=== PATIENT | male | born 1950 ===

== ENCOUNTER 2022-06-13 08:07 | Inpatient (IN) ==
--- NOTE | 2022-06-11 11:02 | Anesthesiology Consultation ---
Date of Service June 11, 2022 Assessment & Plan (1) Encounter for pre-operative examination: Chart Review Chart Review: Acceptable Risk for Surgery (pending DOS labs ) and Patient NOT seen in Pre Admission Testing -No preop testing done- will order CBC with diff and PRP for stat AM of surgery - Check BSG AM DOS -COVID screening: Per PAT nursing assessment on 06/09/22. No known COVID-19 posi tive contacts or current COVID-19 related symptoms. Travel screen negative. Patient vaccinated for Covid. At surgeon discretion if preop Covid testing being done. Pt seen by cardio 10/31/21= Seen for follow up on CAD. Stable from cardiac standpoint. Presents today for cardiac evaluation for lumbar surgeryinitially scheduled 11/11/2021 but canceled due to insurance reasons. Will be rescheduled hopefully in the future. EKG done in office. Patient has not had any active cardiovascular conditions in the last 30 days. Echocardiogram from October 2021 reviewed. Patient denies angina. No evidence of volume overload or heart failure. BP controlled. "He is currently stable from a cardiac standpoint and is an acceptable cardiac risk to proceed with planned surgery without additional testing or intervention. Continue cardiac medications throughout the perioperative period especially beta-antwon and statin." We will leave aspirin to surgeon discretiondoes not routinely need to be discontinued for elective noncardiac surgeries. Follow-up in 1 year. History Surgery Operation Date: 06/13/22 12:15 Proposed Procedures p L3-L4 and L5-S1 Decompression and Fusion, L4-L5 Hardware Removal Spinal Cord Monitoring - Rinku Martinez, Height/Weight Height: 5 ft 8.5 in Weight: 80.286 kg Allergies Allergy/AdvReac Type Severity Reaction Status Date / Time Gadolinium-Containing Allergy Severe Throat Verified 06/09/22 12:27 Contrast Medi swelling Medications Home Medications Medication Instructions Recorded Confirmed Last Taken aspirin 81 mg tablet,delayed 81 mg PO QAM 04/17/21 06/09/22 Unknown release (Adult Low Dose Aspirin) atorvastatin 40 mg tablet 40 mg PO QPM 04/17/21 06/09/22 Unknown dulaglutide 0.75 mg/0.5 mL 0.75 mg subcut WK 04/17/21 06/09/22 Unknown subcutaneous pen injector (Trulicity) empagliflozin 25 mg tablet 25 mg PO QAM 04/17/21 06/09/22 Unknown (Jardiance) glimepiride 2 mg tablet 2 mg PO BID 04/17/21 06/09/22 Unknown metformin 500 mg tablet 500 mg PO TID 04/17/21 06/09/22 Unknown metoprolol tartrate 50 mg tablet 50 mg PO QAM 04/17/21 06/09/22 Unknown multivitamin 1 tab PO QAM 04/17/21 06/09/22 Unknown omega-3 fatty acids 1,000 mg 1,000 mg PO BID 04/17/21 06/09/22 Unknown capsule (Fish Oil Concentrate) ramipril 10 mg tablet 10 mg PO QAM 04/17/21 06/09/22 Unknown Past Medical History Medical History (Updated 06/11/22 @ 11:01 by Syl Huitron PA-C) Cataract Coronary artery disease S/p LAD stent x 1 in 2000 Diabetes type 2, controlled NIDDM History of kidney stones Hyperlipidemia Hypertension Lumbar spondylosis Myocardial infarction Anterior STEMI 04/22/01- s/p LAD stent x1 Follows with Dr. Hook ([place]) Neurogenic claudication due to lumbar spinal stenosis Past Family History Family History Other No family history of adverse response to anesthesia Past Surgical History Surgical History H/O laminectomy x2 History of cardiac cath x3 total (2000 - stent x1, most recent 2006- no stents) History of cholecystectomy History of colonoscopy History of cystoscopy History of foot surgery left foot neuroma removal History of lumbar spinal fusion 2013 History of tonsillectomy History of wisdom tooth extraction Social History Smoking Status: Current every day smoker tobacco type: cigarettes Smoking cigarettes per day: 20 cigs/day (tobacco use x 50 years) Do You Dip or Chew Tobacco: No Hx Alcohol Use: Yes (mixed drink on cruises) Alcohol type: hard liquor alcohol intake frequency: holidays/special occasions only Hx Substance Use: No substance use type: does not use Testing Electrocardiogram Date: 10/31/21 SR at 87bpm Low voltage Chest X-Ray Date: 10/14/21 Findings: + NAD FINDINGS: PA and lateral chest radiographs are compared to study dated 03/07/2014. The cardiomediastinal silhouette is unremarkable. Chronic interstitial thickening is similar to previous. No airspace consolidation or pleural effusion is identified. Emphysematous changes suspected. There is no pneumothorax. The skeletal structures are osteopenic. The bony thorax appears intact. Cholecystectomy clips are noted in the right upper quadrant. Echocardiogram Date: 10/09/21 LVEF 50-55%. Basal inferior wall and inferior septum hypokinesis. Suggestive of impaired LV relaxation. RVSP less than 25 mmHg. No significant valvular disease.
[~2022-06-13 08:07] MED LIST: ACETAMINOPHEN 500 MG TAB PO SCH; CeleBREX 200 MG CAP PO SCH; GABAPENTIN 300 MG CAP PO SCH; LR 15ML/HR IV SCH; SUGAMMADEX SODIUM 200 MG/2 ML VIAL IV ONE; ceFAZolin 2000MG 2,000 MG/15 ML SYR IV SCH
[2022-06-13] MEDS ORDERED: PROPOFOL IV EMULSION 10 MG/ML 20 ML VIAL IV ONE (08:42)
[2022-06-13] MEDS ORDERED: DEXAMETHASONE SOD INJ 4 MG/ML VIAL ONE ×6 (08:42→11:11)
[2022-06-13] MEDS ORDERED: ROCURONIUM BROMIDE 10 MG/ML 5 ML VIAL IV ONE (08:42)
[2022-06-13] MEDS ORDERED: ONDANSETRON INJ 2 MG/ML 2 ML VIAL ONE ×2 (08:42→13:28)
[2022-06-13] MEDS ORDERED: fentaNYL citrate 100 MCG/2 ML VIAL ONE (08:42)
[2022-06-13] MEDS ORDERED: GLYCOPYRROLATE 0.2 MG/ML VIAL ONE (08:42)
[2022-06-13 08:47] LABS: Basophils # (auto) 0.06 K/uL (0-0.2); Basophils % (auto) 0.5 %; Eosinophils # (auto) 0.64 K/uL (0-0.50); Eosinophils % (auto) 5.7 %; Hemoglobin 16.8 g/dl (14.0-18.0); Immature Granulocytes # (auto) 0.02 K/uL (0.00-0.02); Immature Granulocytes % (auto) 0.2 %; Lymphocytes # (auto) 2.39 K/uL (1.2-3.4); Lymphocytes % (auto) 21.3 %; Mean Corpuscular Hemoglobin 32.8 pg (25.0-34.0); Mean Corpuscular Hgb Conc 35.7 g/dL (32.0-36.0); Mean Corpuscular Volume 91.8 fL (80.0-100.0); Mean Platelet Volume 9.9 fL (9.4-12.4); Monocytes # (auto) 0.59 K/uL (0.24-0.82); Monocytes % (auto) 5.3 %; Neutrophils # (auto) 7.52 K/uL (1.4-6.5); Platelet Count 210 K/uL (130-400); RDW Coefficient of Variation 12.2 % (11.5-14.5); RDW Standard Deviation 40.8 fL (36.4-46.3); Red Blood Count 5.12 M/uL (4.63-6.08); White Blood Count 11.22 K/ul (4.8-10.8)
[2022-06-13 08:59] LABS: Partial Thromboplastin Time 26.3 Seconds (21.0-31.0); Prothrombin Time 10.6 Seconds (9.0-12.0)
[2022-06-13 09:06] LABS: BUN Creatinine Ratio 19.2 (10-20); Calcium 9.6 mg/dl (8.5-10.1); Creatinine Clr Calc Pharmacy 68.3 ml/min; Est GFR (African American) 89.1 ml/min; Est GFR (Non-African American) 76.8 ml/min; Potassium 4.2 mmol/L (3.5-5.1)
[2022-06-13] MEDS ORDERED: ePHEDrine sulfate 50 MG/ML AMP IV PRN ×2 (09:19→14:40)
[2022-06-13] MEDS ORDERED: ATROPINE SULFATE 0.1 MG/ML 10ML SYR IV PRN ×2 (09:19→14:40)
--- NOTE | 2022-06-13 10:03 | History & Physical Bridge Note ---
Date of Service June 13, 2022 History & Physical Bridge Note I have examined the patient, reviewed the History & Physical and in the interval since the performance of the History & Physical I have noted the following changes of clinical significance: no changes noted
--- NOTE | 2022-06-13 10:04 | History & Physical Report ---
Date of Service June 13, 2022 Assessment & Plan (1) Neurogenic claudication due to lumbar spinal stenosis: Plan: L3-L4 and L5-S1 decompression and fusion, L4-L5 hardware removal History of Present Illness Chief Complaint: Back and leg pain Primary Care Provider: NO PCP This is a 71-year-old male who presents with chronic persistent back and leg pain. Failed extensive course of nonoperative care is here for surgical intervention. Allergies Allergy/AdvReac Type Severity Reaction Status Date / Time Gadolinium-Containing Allergy Severe Throat Verified 06/13/22 08:36 Contrast Medi swelling Home Medications Medication Instructions Recorded Confirmed Type aspirin 81 mg tablet,delayed 81 mg PO QAM 04/17/21 06/13/22 History release (Adult Low Dose Aspirin) atorvastatin 40 mg tablet 40 mg PO QPM 04/17/21 06/13/22 History dulaglutide 0.75 mg/0.5 mL 0.75 mg subcut WK 04/17/21 06/13/22 History subcutaneous pen injector (Trulicity) empagliflozin 25 mg tablet 25 mg PO QAM 04/17/21 06/13/22 History (Jardiance) glimepiride 2 mg tablet 2 mg PO BID 04/17/21 06/13/22 History metformin 500 mg tablet 500 mg PO BID 04/17/21 06/13/22 History metoprolol tartrate 50 mg tablet 50 mg PO QAM 04/17/21 06/13/22 History multivitamin 1 tab PO QAM 04/17/21 06/13/22 History omega-3 fatty acids 1,000 mg 1,000 mg PO BID 04/17/21 06/13/22 History capsule (Fish Oil Concentrate) ramipril 10 mg tablet 10 mg PO QAM 04/17/21 06/13/22 History docusate sodium 100 mg capsule 100 mg PO DAILY 06/13/22 06/13/22 History (Colace) Past Med/Surg History Medical History Cataract Coronary artery disease S/p LAD stent x 1 in 2000 Diabetes type 2, controlled NIDDM History of kidney stones Hyperlipidemia Hypertension Lumbar spondylosis Myocardial infarction Anterior STEMI 04/22/01- s/p LAD stent x1 Follows with Dr. Hook ([place]) Neurogenic claudication due to lumbar spinal stenosis Surgical History H/O laminectomy x2 History of cardiac cath x3 total (2000 - stent x1, most recent 2006- no stents) History of cholecystectomy History of colonoscopy History of cystoscopy History of foot surgery left foot neuroma removal History of lumbar spinal fusion 2014 History of tonsillectomy History of wisdom tooth extraction Family History Other No family history of adverse response to anesthesia Social History Smoking Status: Current every day smoker Cigarettes Per Day: 20 cigs/day (tobacco use x 50 years); Second Hand Exposure: No; Do You Dip or Chew Tobacco: No; Tobacco Cessation Education Requested by Patient: No Hx Alcohol Use: Yes (mixed drink on cruises) Alcohol type: hard liquor Hx Substance Use: No Preferred Language: Portuguese Communication Ability: Effective Customs Entry Writer Required: No Beliefs That Will Affect Care: None marital status: Current Living Situation: Spouse current occupational status: retired Feels Safe at Home: Yes Safety Concerns: Feels Safe At This Time Assistive Devices: Glasses Assistive Devices Comment: reading glasses Physical Exam Physical Exam: Patient is alert and oriented Heart regular rhythm Lungs clear Results & Data Results & Data ([facility]) Vital Signs (Past 12 Hours) Vital Signs Temp Pulse Resp BP Pulse Ox O2 Del Method 06/13/22 08:41 36.6 C 85 18 130/81 94 Room Air
[2022-06-13] MEDS ORDERED: ceFAZolin 330 MG/ML 1 GM VIAL ONE (10:10)
[2022-06-13] MEDS ORDERED: BUPIVACAINE/EPINEPHRINE 0.25% 1:200,000 30 ML VIAL ONE (10:10)
[2022-06-13] MEDS ORDERED: FLOSEAL HEMOSTATIC MATRIX 10ML TOP ONE (10:54)
--- NOTE | 2022-06-13 13:03 | Fluoroscopy Report ---
INTRAOPERATIVE RADIOGRAPHS CLINICAL HISTORY: Lumbar spinal fusion. Fluoroscopy time: 27 seconds. FINDINGS: 2 spot fluoroscopic views of the lumbar spine are presented. There has been discectomy at L 3-L4 laminectomy and posterior fusion at L3-S1. Interpedicular screws are present at all levels. The orthopedic hardware appears intact. IMPRESSION: Intraoperative images from lumbar spinal fusion surgery as above. Electronically signed by: Ruben Brewer M.D. 06/13/2022 1:02 PM
--- NOTE | 2022-06-13 13:08 | Operative Report ---
Post Operative Report Pre & Post Diagnosis Operation Date: 06/13/22 09:55 Pre-Op Diagnosis: Spinal Stenosis, Lumbar Region with Neurogenic Post-Op Diagnosis: Spinal Stenosis, Lumbar Region with Neurogenic I identified the patient and participated in the time-out.: Yes Procedure Operation Date: 06/13/22 09:55 Actual Procedures #1 removal of posterior instrumentation L4-5. #2 exploration of fusion L4-5 #3 revision decompression with bilateral medial facetectomies and foraminotomies L3-L4 L5-S1. #4 posterior spinal fusion L3-S1. #5 placement posterior segmental instrumentation L3-S1. #6 interbody fusion L3-L4. #7 placement of Spira 13 x 26 mm at L3-L4. #8 placement locally harvested morselized autograft in the posterior gutters. #9 placement of I factor model V toss interbody space and posterior lateral gutters. Surgeon Rinku Martinez, Teenage Babysitter None Estimated Blood Loss 270 Findings Consistent with Post-Op Diagnosis Specimens None Indications This is a 71-year-old male who presents above-mentioned diagnosis after failed course of nonoperative care is here for surgical invention. Description of Procedure Patient was met with identified informed consent obtained. Patient was then taken to the operative suite underwent a patient placed in a prone position Deny table top Ezekiel frame. All bony prominences well-padded eyes inspected to ensure no external pressure placed upon them. This point the lumbar spine was prepped and draped in a sterile fashion. Sharp dissection with the assistance of Bovie cautery was then performed down to and exposing the remaining lamina and transverse processes of L3 L4-5 and the sacral ala bilaterally. Then proceeded to remove the hardware at L4-5 bilaterally explore the fusion mass noting it to be mature and intact. Informed revision complete laminectomy of L5 and L3 including medial facetectomies and foraminotomies. Pedicle screws then placed in L3-L4-L5 and S1 levels bilaterally with assistance of fluoroscopy and properly sized donn placed. By way the transforaminal approach on the right complete discectomy of L3-L4 was performed endplates curetted to subcortical bleeding bone and a 13 x 26 mm spiral cage with I factor tapped in position. The rods were then locked in 5 position bilaterally. The transverse processes of L3 L4-5 and sacral ala burred to subcortical bleeding bone. I factor model V toss and locally harvested morselized autograft was placed in the posterior gutters. 15 round WENDI drain inserted. Incision was then closed with 1 Vicryl the fascia 2-0 Vicryl subcutaneously and 4 Monocryl for final skin closure. Steri-Strip sterile dressings placed. Patient waken taken to PACU in stable condition. Please note spinal cord monitoring was utilized at the procedure no changes noted. I attest to the content of the Intraoperative Record and any orders documented therein. Any exceptions are noted below.
[2022-06-13] MEDS: fentaNYL citrate 100 MCG/2 ML VIAL IV PRN ×4 (13:20→13:35)
[2022-06-13] MEDS: HYDROmorphone INJ 2 MG/ML SYR/VIAL IV PRN ×3 (13:40→13:55)
--- NOTE | 2022-06-13 14:02 | Anesthesiology Progress Note ---
Date of Service June 13, 2022 Anesthesia Post Procedure Vital Signs Vital Signs: Temp Pulse Resp BP Pulse Ox O2 Del Method 06/13/22 08:41 36.6 C 85 18 130/81 94 Room Air Pain Intensity Lower Back: Pain Intensity: 2 Transfer of Care Handoff Completed per policy Notes Mental Status: alert / awake / arousable and participated in evaluation Patient Amnestic to Procedure: Yes Nausea / Vomiting: adequately controlled Pain: adequately controlled Airway Patency, RR, SpO2: stable & adequate BP & HR: stable & adequate Hydration State: stable & adequate Anesthetic Complications: no major complications apparent and Pt Satisfied with anesthetic care
[2022-06-13] MEDS ORDERED: HYDROmorphone INJ 2 MG/ML SYR/VIAL IV PRN (14:40)
[2022-06-13] MEDS ORDERED: SOD PHOSPHATE/SOD BIPHOSPHATE ENEMA 132 ML BTL PR PRN (14:55)
[2022-06-13] MEDS ORDERED: FAMOTIDINE 20 MG TAB PO PRN (14:55)
[2022-06-13] MEDS ORDERED: ACETAMINOPHEN 500 MG TAB PO PRN (14:55)
[2022-06-13] MEDS ORDERED: METOCLOPRAMIDE HCL INJ 5 MG/ML 2 ML VIAL IV PRN (14:55)
[2022-06-13] MEDS ORDERED: diphenhydrAMINE Capsule 25 MG CAP PO PRN (14:55)
[2022-06-13] MEDS ORDERED: PROMETHAZINE HCL 12.5 MG in SODIUM CHLORIDE 0.9% 50 ML IV PRN (14:55)
[2022-06-13] MEDS ORDERED: ALUMINUM/MAGNESIUM SUSP 30 ML UDC PO PRN (14:55)
[2022-06-13] MEDS ORDERED: HYDROmorphone INJ 0.5 MG/0.5 ML SYR IV PRN (14:55)
[2022-06-13] MEDS ORDERED: ONDANSETRON 4 MG OD TAB PO PRN (14:55)
[2022-06-13] MEDS ORDERED: LORazepam 0.5 MG in SYRINGE 0 ML IV PRN (14:55)
[2022-06-13] MEDS ORDERED: bisacodyL 10 MG SUPP PR PRN (14:55)
[2022-06-13] MEDS ORDERED: PHARMACY GLYCEMIC MGMT CONSULT PRN (14:55)
[2022-06-13] MEDS ORDERED: DO NOT ADMINISTER FLU VACCINE PRN (14:55)
[2022-06-13] MEDS ORDERED: traMADol HCL 50 MG TABLET PO PRN (14:55)
[2022-06-13] MEDS ORDERED: hydrOXYzine HCl 25 MG TAB PO PRN (14:55)
[2022-06-13] MEDS ORDERED: NALOXONE HCL 0.4 MG/1 ML VIAL/CARP IV PRN (14:55)
[2022-06-13] MEDS ORDERED: MAGNESIUM HYDROXIDE SUSP 30 ML UDC PO PRN (14:55)
[2022-06-13] MEDS ORDERED: LORazepam 0.5 MG TAB PO PRN (14:55)
[2022-06-13] MEDS ORDERED: ONDANSETRON INJ 2 MG/ML 2 ML VIAL IV PRN (14:55)
[2022-06-13] MEDS ORDERED: HYDROmorphone INJ 1 MG/ML SYRINGE IV PRN (14:55)
[2022-06-13] MEDS ORDERED: ACETAMINOPHEN 1,000 MG/100 ML VIAL IV PRN (14:55)
[2022-06-13] MEDS ORDERED: DO NOT ADMINISTER PNEUMOCOCCAL VACCINE PRN (14:55)
--- NOTE | 2022-06-13 15:25 | Pharmacy Report ---
Pharmacy Glycemic Short Note 2 - Date of Service June 13, 2022 - Glycemic Short BSG Results (Last 24 hours): 06/13/22 06/13/22 06/13/22 08:30 08:33 13:19 Glucose 163 H POC Glucose 174 H 171 H OUTPATIENT ANTIDIABETIC REGIMEN: * Trulicity 0.75 mg SC weekly (Sundays) * Jardiance 25 mg PO daily * Glimepiride 2 mg PO BIDM HbA1c ordered ASSESSMENT: * EG is a 71 year old male POD #0 s/p spinal decompression/fusion * Received dexamethasone IV in OR with 6 mg IV daily ongoing starting tomorrow morning * Preop BSG of 174 mg/dL and postop BSG of 171 mg/dL * Will initiate aggressive Novolog and weight-based steroid basal dosing initially PLAN FOR INPATIENT GLYCEMIC CONTROL: * Hold outpatient oral diabetes medications * Basal insulin * Lantus 30 units SQ x 1 (~0.4 unit/kg) * Reassess in AM * Bolus insulin * NovoLog per scale ACHS or Q6hrs while NPO * Goal Range: Low 110 mg/dL - High 140 mg/dL * Correction Factor: 20 mg/dL/unit * Nutritional / Prandial insulin per carb ratio of 1 unit per 7 grams CHO consumed
[2022-06-13] MEDS ORDERED: LANTUS PER UNIT CHARGE SQ ONE (15:30)
[2022-06-13] MEDS: SODIUM CHLORIDE 0.9% 1000ML 1,000 ML IV SCH (15:54)
[2022-06-13] MEDS ORDERED: GLUCOSE 40% GEL 15 GM TUBE PO PRN (16:45)
[2022-06-13] MEDS ORDERED: CARBOHYDRATES FOR HYPOGLYCEMIA PO PRN (16:45)
[2022-06-13] MEDS ORDERED: GLUCOSE 10 TAB/TUBE PO PRN (16:45)
[2022-06-13] MEDS ORDERED: GLUCAGON FOR INJ 1 MG VIAL IM PRN (16:45)
[2022-06-13] MEDS ORDERED: DEXTROSE 50% 50 ML SYRINGE IV PRN (16:45)
--- NOTE | 2022-06-13 17:27 | Hospitalist Consultation ---
Date of Consultation June 13, 2022 Assessment & Plan (1) Status post spinal surgery: Status post L3-L4 and L2 5S1 decompression fusion due to ongoing neurogenic claudication due to spinal stenosis. Complains minimal pain at the lower back otherwise remains asymptomatic Management will be as per orthopedic surgeon Continue gabapentin for neuropathic pain (2) Diabetes type 2, controlled: Has type 2 diabetes on insulin on dulaglutide Well-controlled as per the patient Has been on sliding scale insulin Hold his oral hypoglycemic agents (3) Hypertension: Blood pressure is controlled Continue with current medication (4) Hyperlipidemia: Continue statin (5) Coronary artery disease: No acute cardiac symptoms Will continue famotidine for reflux disease DVT prophylaxis As per Ortho CODE STATUS Full History of Present Illness Reason for Consultation: Medical management following lumbar decompression and fusion Attending Physician: Rinku Martinez DO History of Present Illness Is a 71-year-old male with significant past medical history of diabetes, hypertension and hyperlipidemia apparently underwent lumbar decompression fusion involving L3-L4 and L5-S1 distribution today. He has been complaining of some pain with minimal numbness and tingling involving the lower extremities. He is free of imaging studies, EKG and blood test are unremarkable. Denies any chest pain or palpitation, any abdominal pain, nausea or vomiting, any fever and or chills following surgery. Allergies Allergy/AdvReac Type Severity Reaction Status Date / Time Gadolinium-Containing Allergy Severe Throat Verified 06/13/22 08:36 Contrast Medi swelling Home Medications Medication Instructions Recorded Confirmed Type aspirin 81 mg tablet,delayed 81 mg PO QAM 04/17/21 06/13/22 History release (Adult Low Dose Aspirin) atorvastatin 40 mg tablet 40 mg PO QPM 04/17/21 06/13/22 History dulaglutide 0.75 mg/0.5 mL 0.75 mg subcut WK 04/17/21 06/13/22 History subcutaneous pen injector (Trulicity) empagliflozin 25 mg tablet 25 mg PO QAM 04/17/21 06/13/22 History (Jardiance) glimepiride 2 mg tablet 2 mg PO BID 04/17/21 06/13/22 History metformin 500 mg tablet 500 mg PO BID 04/17/21 06/13/22 History metoprolol tartrate 50 mg tablet 50 mg PO QAM 04/17/21 06/13/22 History multivitamin 1 tab PO QAM 04/17/21 06/13/22 History omega-3 fatty acids 1,000 mg 1,000 mg PO BID 04/17/21 06/13/22 History capsule (Fish Oil Concentrate) ramipril 10 mg tablet 10 mg PO QAM 04/17/21 06/13/22 History docusate sodium 100 mg capsule 100 mg PO DAILY 06/13/22 06/13/22 History (Colace) Patient History Medical History (Updated 06/13/22 @ 17:23 by Jasbir Griffin MD) Cataract Coronary artery disease S/p LAD stent x 1 in 2000 Diabetes type 2, controlled NIDDM History of kidney stones Hyperlipidemia Hypertension Lumbar spondylosis Myocardial infarction Anterior STEMI 04/22/01- s/p LAD stent x1 Follows with Dr. Hook ([place]) Neurogenic claudication due to lumbar spinal stenosis Surgical History H/O laminectomy x2 History of cardiac cath x3 total (2000 - stent x1, most recent 2006- no stents) History of cholecystectomy History of colonoscopy History of cystoscopy History of foot surgery left foot neuroma removal History of lumbar spinal fusion 2013 History of tonsillectomy History of wisdom tooth extraction Family History Other No family history of adverse response to anesthesia Social History Smoking Status: Current every day smoker Cigarettes Per Day: 20 cigs/day (tobacco use x 50 years); Second Hand Exposure: No; Do You Dip or Chew Tobacco: No; Tobacco Cessation Education Requested by Patient: No Hx Alcohol Use: Yes (mixed drink on cruises) Alcohol type: hard liquor Hx Substance Use: No Preferred Language: Luxembourger Communication Ability: Effective [place] Hand Required: No Beliefs That Will Affect Care: None marital status: Current Living Situation: Spouse current occupational status: retired Feels Safe at Home: Yes Safety Concerns: Feels Safe At This Time Assistive Devices: Glasses Assistive Devices Comment: reading glasses Review of Systems Review of Systems: All systems reviewed and are unremarkable except as noted below Physical Exam Physical Exam: Lying in bed comfortably Constitutional: well developed, well nourished and average body habitus; not ill appearing Eyes: PERRL, conjunctivae normal, anicteric sclerae ENMT: external ear and nose normal, oropharynx normal Neck: trachea midline, no thyromegaly Respiratory: no respiratory distress Auscultation: lungs clear to auscultation bilaterally Cardiovascular: Rate/Rhythm: regular rate and regular rhythm; not tachycardic Heart Sounds: normal S1 and normal S2; no murmur Extremities: no edema Gastrointestinal (Abdomen): Inspection/Auscultation: normal bowel sounds; abdomen not distended Percussion/Palpation: abdomen soft; abdomen nontender Musculoskeletal: No acute arthritis involving any joint but does have back pain status post back surgery Neurologic: Alert, awake and oriented times. Moving all limbs. No focal sensory or no motor deficit appreciated Psychiatric: A+Ox3, euthymic affect Lymphatic: no cervical or axillary lymphadenopathy Results & Data Results & Data ([facility]) Vital Signs (Past 12 Hours) Vital Signs Temp Pulse Pulse Resp BP Pulse Ox O2 Del Method 06/13/22 16:30 36.7 C 87 18 110/69 95 Nasal Cannula 06/13/22 15:59 36.6 C 79 16 118/73 96 Nasal Cannula 06/13/22 15:31 36.4 C L 79 18 121/72 94 Room Air 06/13/22 15:00 36.6 C 87 22 120/75 97 Nasal Cannula 06/13/22 14:30 36.6 C 66 12 123/69 93 Nasal Cannula 06/13/22 14:10 36.6 C 77 20 124/70 97 Nasal Cannula 06/13/22 13:40 69 8 L 137/78 99 Oxymask 06/13/22 13:30 65 10 L 135/81 99 Oxymask 06/13/22 14:20 36.6 C 77 16 127/66 96 Nasal Cannula 06/13/22 14:00 68 10 L 134/79 97 Oxymask 06/13/22 13:20 73 10 L 142/83 H 98 Oxymask 06/13/22 13:13 36.0 C L 81 14 158/89 H 97 Oxymask 06/13/22 08:41 36.6 C 85 18 130/81 94 Room Air O2 Flow Rate 06/13/22 16:30 2 06/13/22 15:59 2 06/13/22 15:31 06/13/22 15:00 2 06/13/22 14:30 2 06/13/22 14:10 2 06/13/22 13:40 3 06/13/22 13:30 3 06/13/22 14:20 2 06/13/22 14:00 2 06/13/22 13:20 3 06/13/22 13:13 5 06/13/22 08:41 Laboratory Results Short CBC 06/13/22 Range/Units 08:33 WBC 11.22 H (4.8-10.8) K/ul Hgb 16.8 (14.0-18.0) g/dl Hct 47.0 (40.1-51.0) % Plt Count 210 (130-400) K/uL BMP 06/13/22 08:33 Sodium 137 Potassium 4.2 Chloride 104 Carbon Dioxide 26 BUN 19 Creatinine 0.99 Glucose 163 H Calcium 9.6 Medications Administered Current Inpatient Medications Acetaminophen (Acetaminophen 500 Mg Tab) 1,000 mg PO Q8H PRN PRN Reason: MILD Pain Scale 1,2,3 & Pre PT Stop: 07/13/22 14:54 Al Hydrox/Mg Hydrox/Simethicone (Aluminum/Magnesium Susp 30 Ml Udc) 30 ml PO Q6H PRN PRN Reason: Dyspepsia Stop: 07/13/22 14:54 Aspirin (Aspirin 81 Mg Ectab) 81 mg PO QAM [facility] Stop: 07/14/22 08:59 Atorvastatin Calcium (Atorvastatin 40 Mg Tab) 40 mg PO QPM [facility] Stop: 07/13/22 20:59 Atropine Sulfate (Atropine Sulfate 0.1 Mg/Ml 10ml Syr) 0.5 mg IV Q1M PRN PRN Reason: PACU Use-HR<40 &/or Bradycardi Stop: 06/13/22 22:40 Bisacodyl (Bisacodyl 10 Mg Supp) 10 mg OH DAILY PRN PRN Reason: Constipation Stop: 07/13/22 14:54 Celecoxib (Celebrex 200 Mg Cap) 200 mg PO PREOP TONA Stop: 06/13/22 18:00 Last Admin: 06/13/22 08:52 Dose: 200 mg Dextrose (Dextrose 50% 50 Ml Syringe) 25 - 50 ml IV UD PRN; Protocol PRN Reason: Hypoglycemia Protocol Stop: 07/13/22 16:44 Diphenhydramine HCl (Diphenhydramine Capsule 25 Mg Cap) 25 mg PO Q6H PRN PRN Reason: Allergic Rhinitis/Insomnia Stop: 07/13/22 14:54 Enalapril Maleate (Enalapril Maleate 10 Mg Tab) 40 mg PO QAM [facility] Stop: 07/14/22 08:59 Ephedrine Sulfate (Ephedrine Sulfate 50 Mg/Ml Amp) 5 mg IV Q5M PRN PRN Reason: PACU Use Only-SBP<90 mmHg Stop: 06/13/22 22:40 Famotidine (Famotidine 20 Mg Tab) 20 mg PO Q12H PRN PRN Reason: Dyspepsia Stop: 07/13/22 14:54 Gabapentin (Gabapentin 300 Mg Cap) 300 mg PO PREOP [facility]ONA Stop: 06/13/22 18:00 Last Admin: 06/13/22 08:52 Dose: 300 mg Glucagon (Glucagon For Inj 1 Mg Vial) 1 mg IM UD PRN; Protocol PRN Reason: Hypoglycemia Protocol Stop: 07/13/22 16:44 Glucose (Glucose 40% Gel 15 Gm Tube) 15 - 30 gm PO UD PRN; Protocol PRN Reason: Hypoglycemia Protocol Stop: 07/13/22 16:44 Glucose (Glucose 10 Tab/Tube) 4 - 8 tab PO UD PRN; Protocol PRN Reason: Hypoglycemia Protocol Stop: 07/13/22 16:44 Hydromorphone HCl (Hydromorphone Inj 2 Mg/Ml Syr/Vial) 0.5 mg IV Q5M PRN PRN Reason: PACU Use Only-Pain Stop: 06/13/22 22:40 Hydromorphone HCl (Hydromorphone Inj 0.5 Mg/0.5 Ml Syr) 0.5 mg IV Q3H PRN PRN Reason: MODERATE Pain (Scale 4,5,6) & Pre PT Stop: 06/27/22 14:54 Last Admin: 06/13/22 15:54 Dose: 0.5 mg Hydromorphone HCl (Hydromorphone Inj 1 Mg/Ml Syringe) 1 mg IV Q3H PRN PRN Reason: SEVERE Pain (Scale 7,8,9,10) Stop: 06/27/22 14:54 Hydroxyzine HCl (Hydroxyzine Hcl 25 Mg Tab) 25 mg PO Q8H PRN PRN Reason: Anxiety Stop: 07/13/22 14:54 Lactated Ringer's (Lr) 1,000 mls @ 15 mls/hr IV .Q24H [facility] Stop: 06/14/22 05:59 Last Infusion: 06/13/22 10:32 Dose: Infused Sodium Chloride (Nss 1000ml) 1,000 mls @ 100 mls/hr IV .Q10H [facility] Stop: 07/13/22 14:54 Last Admin: 06/13/22 15:54 Dose: 100 mls/hr Promethazine HCl 12.5 mg/ (Sodium Chloride) 50.5 mls @ 202 mls/hr IV Q6H PRN PRN Reason: Nausea &/or Vomiting Stop: 07/13/22 14:54 Acetaminophen (Ofirmev) 1,000 mg in 100 mls @ 400 mls/hr IV Q8H PRN PRN Reason: Pain Rating 1-3 & Pre PT Stop: 06/14/22 14:56 Cefazolin Sodium (Ancef 2000mg) 2,000 mg in 15 mls @ 3.75 mls/min IV Q8H [facility]; Protocol Stop: 06/14/22 03:03 Lorazepam 0.5 mg/ Syringe 0.5 mls @ 2 mls/min IV Q8H PRN PRN Reason: Sedation/Anxiety Stop: 07/13/22 14:54 Dexamethasone 6 mg/ Syringe 1.5 mls @ 1 mls/min IV DAILY [facility] Stop: 06/16/22 09:02 Influenza Virus Vaccine Quadrival (Do Not Administer Flu Vaccine) 1 each N/A PRN PRN PRN Reason: Notification Stop: 07/13/22 14:54 Insulin Aspart (Insulin Aspart Per Unit) 0 units SC ACHS [facility] Stop: 07/13/22 16:29 Lorazepam (Lorazepam 0.5 Mg Tab) 0.5 mg PO Q8H PRN PRN Reason: Sedation/Anxiety Stop: 07/13/22 14:54 Magnesium Hydroxide (Magnesium Hydroxide Susp 30 Ml Udc) 30 ml PO Q24H PRN PRN Reason: Constipation Stop: 07/13/22 14:54 Metoclopramide HCl (Metoclopramide Hcl Inj 5 Mg/Ml 2 Ml Vial) 10 mg IV Q6H PRN PRN Reason: Nausea &/or Vomiting Stop: 07/13/22 14:54 Metoprolol Tartrate (Metoprolol Tartrate 50 Mg Tab) 50 mg PO QAM [facility] Stop: 07/14/22 08:59 Miscellaneous (Carbohydrates For Hypoglycemia ) 15 - 30 gm PO UD PRN PRN Reason: Hypoglycemia Treatment Stop: 07/13/22 16:44 Miscellaneous Information (Pharmacy Glycemic Mgmt Consult) 1 each N/A UD PRN PRN Reason: Consult Stop: 07/13/22 14:54 Multivitamins (Multivitamin Tab) 1 tab PO QAM [facility] Stop: 07/14/22 08:59 Naloxone HCl (Naloxone Hcl 0.4 Mg/1 Ml Vial/Carp) 0.1 mg IV Q5M PRN PRN Reason: Oversedation/Resp depression Stop: 07/13/22 14:54 Ondansetron HCl (Ondansetron Inj 2 Mg/Ml 2 Ml Vial) 4 mg IV Q6H PRN PRN Reason: Nausea &/or Vomiting Stop: 07/13/22 14:54 Ondansetron HCl (Ondansetron 4 Mg Od Tab) 4 mg PO Q6H PRN PRN Reason: Nausea Stop: 07/13/22 14:54 Oxycodone HCl (Oxycodone Hcl Ir 5 Mg Tab (Immediate Release)) 5 - 10 mg PO Q4H PRN PRN Reason: Pain & Pre PT Stop: 06/27/22 14:54 Pneumococcal Polyvalent Vaccine (Do Not Administer Pneumococcal Vaccine) 1 each N/A PRN PRN PRN Reason: Notification Stop: 07/13/22 14:54 Polyethylene Glycol (Polyethylene (Miralax) 17 Gm Pack) 17 gm PO Q6 [facility] Stop: 07/14/22 05:59 Senna/Docusate Sodium (Docusate Sodium/Senna 50/8.6mg Tab) 2 tab PO HS [facility] Stop: 07/13/22 20:59 Sodium Biphosphate/Sodium Phosphate (Sod Phosphate/Sod Biphosphate Enema 132 Ml Btl) 132 ml OH ONE PRN PRN Reason: Constipation Stop: 07/13/22 14:54 Tramadol HCl (Tramadol Hcl 50 Mg Tablet) 50 - 100 mg PO Q4H PRN PRN Reason: Moderate-Severe pain & Pre PT Stop: 07/13/22 14:54
[2022-06-13] MEDS: INSULIN ASPART PER UNIT SC SCH ×2 (17:54→21:57)
[2022-06-13] MEDS: ceFAZolin 2000MG 2,000 MG/15 ML SYR IV SCH (19:51)
[2022-06-13] MEDS ORDERED: COUGH DROP (SUGAR FREE) LOZ 24 LOZ/1 BOX BUCCAL ONE (19:57)
[2022-06-13] MEDS ORDERED: GLIMEPIRIDE 2 MG TAB PO SCH (21:00)
[2022-06-13] MEDS: DOCUSATE SODIUM/SENNA 50/8.6MG TAB PO SCH (21:19)
[2022-06-13] MEDS: oxyCODONE HCL IR 5 MG TAB (IMMEDIATE RELEASE) PO PRN (21:20)
[2022-06-13] MEDS: ATORVASTATIN 40 MG TAB PO SCH (21:56)
[2022-06-14] MEDS: ceFAZolin 2000MG 2,000 MG/15 ML SYR IV SCH (02:08)
[2022-06-14] MEDS: SODIUM CHLORIDE 0.9% 1000ML 1,000 ML IV SCH (02:28)
[2022-06-14] MEDS: POLYETHYLENE (MIRALAX) 17 GM PACK PO SCH ×4 (05:25→22:04)
[2022-06-14 07:04] LABS: Calcium 8.4 mg/dl (8.5-10.1); Creatinine Clr Calc Pharmacy 60.9 ml/min; Est GFR (African American) 77.6 ml/min; Est GFR (Non-African American) 66.9 ml/min; Potassium 4.4 mmol/L (3.5-5.1)
[2022-06-14 07:59] LABS: Estimated Average Glucose 146 mg/dl; Hemoglobin A1C 6.7 % (4.5-5.6)
[2022-06-14 08:37] LABS: Basophils # (auto) 0.04 K/uL (0-0.2); Basophils % (auto) 0.3 %; Eosinophils # (auto) 0.03 K/uL (0-0.50); Eosinophils % (auto) 0.2 %; Hemoglobin 13.5 g/dl (14.0-18.0); Immature Granulocytes # (auto) 0.09 K/uL (0.00-0.02); Immature Granulocytes % (auto) 0.6 %; Lymphocytes # (auto) 1.86 K/uL (1.2-3.4); Lymphocytes % (auto) 12.1 %; Mean Corpuscular Hemoglobin 32.2 pg (25.0-34.0); Mean Corpuscular Hgb Conc 35.5 g/dL (32.0-36.0); Mean Corpuscular Volume 90.7 fL (80.0-100.0); Mean Platelet Volume 10.9 fL (9.4-12.4); Monocytes # (auto) 0.89 K/uL (0.24-0.82); Monocytes % (auto) 5.8 %; Neutrophils # (auto) 12.41 K/uL (1.4-6.5); Platelet Count 229 K/uL (130-400); RDW Coefficient of Variation 12.1 % (11.5-14.5); RDW Standard Deviation 39.8 fL (36.4-46.3); Red Blood Count 4.19 M/uL (4.63-6.08); White Blood Count 15.32 K/ul (4.8-10.8)
[2022-06-14] MEDS: METOPROLOL TARTRATE 50 MG TAB PO SCH (08:44)
[2022-06-14] MEDS: ASPIRIN 81 MG ECTAB PO SCH (08:44)
[2022-06-14] MEDS: ENALAPRIL MALEATE 10 MG TAB PO SCH (08:44)
[2022-06-14] MEDS: MULTIVITAMIN TAB PO SCH (08:44)
[2022-06-14] MEDS: dexAMETHasone 6 MG in SYRINGE 0 ML IV SCH (08:46)
[2022-06-14] MEDS: INSULIN ASPART PER UNIT SC SCH ×4 (08:51→21:49)
[2022-06-14] MEDS ORDERED: EMPAGLIFLOZIN 25 MG TAB PO SCH (09:00)
[2022-06-14] MEDS ORDERED: LANTUS PER UNIT CHARGE SQ SCH ×2 (09:00→21:00)
--- NOTE | 2022-06-14 10:29 | Orthopedic Progress Note ---
Date of Service June 14, 2022 Assessment & Plan (1) Neurogenic claudication due to lumbar spinal stenosis: Plan: This time we will continue physical therapy monitor his WENDI output hopefully discharge home in next few days. Admission and Anticipated Discharge Date Admission Date: June 13, 2022 Subjective Patient's back pain is controlled leg symptoms markedly improved. Physical Exam Physical Exam: Patient is comfortable. Is constricted testing. Results & Data ([facility]) Vital Signs (Past 12 Hours) Vital Signs Temp Pulse Pulse Resp BP Pulse Ox O2 Del Method 06/14/22 07:59 36.6 C 72 19 132/78 94 Room Air 06/14/22 01:45 36.4 C L 70 20 114/72 95 Room Air
[2022-06-14] MEDS: oxyCODONE HCL IR 5 MG TAB (IMMEDIATE RELEASE) PO PRN ×2 (12:52→20:00)
--- NOTE | 2022-06-14 17:07 | Hospitalist Progress Note ---
Date of Service June 14, 2022 Assessment & Plan (1) Status post spinal surgery: Plan: Status post L3-L4 and L2 5S1 decompression fusion due to ongoing neurogenic claudication due to spinal stenosis. Complains minimal pain at the lower back otherwise remains asymptomatic Management will be as per orthopedic surgeon Continue gabapentin for neuropathic pain Hemoglobin remained stable and the pain is controlled (2) Diabetes type 2, controlled: Plan: Has type 2 diabetes on insulin on dulaglutide Well-controlled as per the patient Has been on sliding scale insulin Hold his oral hypoglycemic agents Blood sugar is stable (3) Hypertension: Plan: Blood pressure is controlled Continue with current medication (4) Hyperlipidemia: Plan: Continue statin (5) Coronary artery disease: Plan: No acute cardiac symptoms Will continue famotidine for reflux disease DVT prophylaxis As per Ortho CODE STATUS Full Admission and Anticipated Discharge Date Admission Date: June 13, 2022 Subjective 06/14/2022 The patient was seen and examined in medical floor He is out of bed on a chair and denies any symptoms Review of Systems Review of Systems: All systems reviewed and are unremarkable except as noted below Physical Exam Physical Exam: Lying in bed comfortably Constitutional: well developed, well nourished and average body habitus; not ill appearing Eyes: PERRL, conjunctivae normal, anicteric sclerae ENMT: external ear and nose normal, oropharynx normal Neck: trachea midline, no thyromegaly Respiratory: no respiratory distress Auscultation: lungs clear to auscultation bilaterally Cardiovascular: Rate/Rhythm: regular rate and regular rhythm; not tachycardic Heart Sounds: normal S1 and normal S2; no murmur Extremities: no edema Gastrointestinal (Abdomen): Inspection/Auscultation: normal bowel sounds; abdomen not distended Percussion/Palpation: abdomen soft; abdomen nontender Psychiatric: A+Ox3, euthymic affect Lymphatic: no cervical or axillary lymphadenopathy Results & Data Results & Data ([facility]) Vital Signs (Past 12 Hours) Vital Signs Temp Pulse Pulse Resp BP Pulse Ox O2 Del Method 06/14/22 16:00 36.9 C 70 16 91/53 L 95 Room Air 06/14/22 11:00 36.4 C L 74 18 105/64 96 Room Air 06/14/22 07:59 36.6 C 72 19 132/78 94 Room Air Laboratory Results Short CBC 06/14/22 Range/Units 06:15 WBC 15.32 H (4.8-10.8) K/ul Hgb 13.5 L D (14.0-18.0) g/dl Hct 38.0 L (40.1-51.0) % Plt Count 229 (130-400) K/uL [facility] 06/14/22 06:15 Sodium 134 L Potassium 4.4 Chloride 101 Carbon Dioxide 26 BUN 20 Creatinine 1.11 Glucose 185 H Calcium 8.4 L Medications Administered Current Inpatient Medications Acetaminophen (Acetaminophen 500 Mg Tab) 1,000 mg PO Q8H PRN PRN Reason: MILD Pain Scale 1,2,3 & Pre PT Stop: 07/13/22 14:54 Al Hydrox/Mg Hydrox/Simethicone (Aluminum/Magnesium Susp 30 Ml Udc) 30 ml PO Q6H PRN PRN Reason: Dyspepsia Stop: 07/13/22 14:54 Aspirin (Aspirin 81 Mg Ectab) [facility] [place] Stop: 07/14/22 08:59 Last Admin: 06/14/22 08:44 Dose: 81 mg Atorvastatin Calcium (Atorvastatin 40 Mg Tab) 40 mg PO QPM [facility] Stop: 07/13/22 20:59 Last Admin: 06/13/22 21:56 Dose: 40 mg Bisacodyl (Bisacodyl 10 Mg Supp) 10 mg MS DAILY PRN PRN Reason: Constipation Stop: 07/13/22 14:54 Dextrose (Dextrose 50% 50 Ml Syringe) 25 - 50 ml IV UD PRN; Protocol PRN Reason: Hypoglycemia Protocol Stop: 07/13/22 16:44 Diphenhydramine HCl (Diphenhydramine Capsule 25 Mg Cap) 25 mg PO Q6H PRN PRN Reason: Allergic Rhinitis/Insomnia Stop: 07/13/22 14:54 Enalapril Maleate (Enalapril Maleate 10 Mg Tab) 40 mg PO QAM [facility] Stop: 07/14/22 08:59 Last Admin: 06/14/22 08:44 Dose: 40 mg Famotidine (Famotidine 20 Mg Tab) 20 mg PO Q12H PRN PRN Reason: Dyspepsia Stop: 07/13/22 14:54 Glucagon (Glucagon For Inj 1 Mg Vial) 1 mg IM UD PRN; Protocol PRN Reason: Hypoglycemia Protocol Stop: 07/13/22 16:44 Glucose (Glucose 40% Gel 15 Gm Tube) 15 - 30 gm PO UD PRN; Protocol PRN Reason: Hypoglycemia Protocol Stop: 07/13/22 16:44 Glucose (Glucose 10 Tab/Tube) 4 - 8 tab PO UD PRN; Protocol PRN Reason: Hypoglycemia Protocol Stop: 07/13/22 16:44 Hydromorphone HCl (Hydromorphone Inj 0.5 Mg/0.5 Ml Syr) 0.5 mg IV Q3H PRN PRN Reason: MODERATE Pain (Scale 4,5,6) & Pre PT Stop: 06/27/22 14:54 Last Admin: 06/13/22 15:54 Dose: 0.5 mg Hydromorphone HCl (Hydromorphone Inj 1 Mg/Ml Syringe) 1 mg IV Q3H PRN PRN Reason: SEVERE Pain (Scale 7,8,9,10) Stop: 06/27/22 14:54 Hydroxyzine HCl (Hydroxyzine Hcl 25 Mg Tab) 25 mg PO Q8H PRN PRN Reason: Anxiety Stop: 07/13/22 14:54 Promethazine HCl 12.5 mg/ (Sodium Chloride) 50.5 mls @ 202 mls/hr IV Q6H PRN PRN Reason: Nausea &/or Vomiting Stop: 07/13/22 14:54 Lorazepam 0.5 mg/ Syringe 0.5 mls @ 2 mls/min IV Q8H PRN PRN Reason: Sedation/Anxiety Stop: 07/13/22 14:54 Dexamethasone 6 mg/ Syringe 1.5 mls @ 1 mls/min IV DAILY [facility] Stop: 06/16/22 09:02 Last Admin: 06/14/22 08:46 Dose: 1 mls/min Influenza Virus Vaccine Quadrival (Do Not Administer Flu Vaccine) 1 each N/A PRN PRN PRN Reason: Notification Stop: 07/13/22 14:54 Insulin Aspart (Insulin Aspart Per Unit) 0 units SC [facility] Stop: 07/13/22 16:29 Last Admin: 06/14/22 13:03 Dose: 10 units Insulin Glargine (Lantus Per Unit Charge) 30 units SQ DAILY [facility] Stop: 07/14/22 08:59 Last Admin: 06/14/22 08:53 Dose: 30 units Insulin Glargine (Lantus Per Unit Charge) 0 units SQ HS [facility]; Protocol Stop: 06/14/22 21:01 Lorazepam (Lorazepam 0.5 Mg Tab) 0.5 mg PO Q8H PRN PRN Reason: Sedation/Anxiety Stop: 07/13/22 14:54 Magnesium Hydroxide (Magnesium Hydroxide Susp 30 Ml Udc) 30 ml PO Q24H PRN PRN Reason: Constipation Stop: 07/13/22 14:54 Metoclopramide HCl (Metoclopramide Hcl Inj 5 Mg/Ml 2 Ml Vial) 10 mg IV Q6H PRN PRN Reason: Nausea &/or Vomiting Stop: 07/13/22 14:54 Metoprolol Tartrate (Metoprolol Tartrate 50 Mg Tab) [facility] [place] Stop: 07/14/22 08:59 Last Admin: 06/14/22 08:44 Dose: 50 mg Miscellaneous (Carbohydrates For Hypoglycemia ) 15 - 30 gm PO UD PRN PRN Reason: Hypoglycemia Treatment Stop: 07/13/22 16:44 Miscellaneous Information (Pharmacy Glycemic Mgmt Consult) 1 each N/A UD PRN PRN Reason: Consult Stop: 07/13/22 14:54 Multivitamins (Multivitamin Tab) 1 tab PO [facility] Stop: 07/14/22 08:59 Last Admin: 06/14/22 08:44 Dose: 1 tab Naloxone HCl (Naloxone Hcl 0.4 Mg/1 Ml Vial/Carp) 0.1 mg IV Q5M PRN PRN Reason: Oversedation/Resp depression Stop: 07/13/22 14:54 Ondansetron HCl (Ondansetron Inj 2 Mg/Ml 2 Ml Vial) 4 mg IV Q6H PRN PRN Reason: Nausea &/or Vomiting Stop: 07/13/22 14:54 Ondansetron HCl (Ondansetron 4 Mg Od Tab) 4 mg PO Q6H PRN PRN Reason: Nausea Stop: 07/13/22 14:54 Oxycodone HCl (Oxycodone Hcl Ir 5 Mg Tab (Immediate Release)) 5 - 10 mg PO Q4H PRN PRN Reason: Pain & Pre PT Stop: 06/27/22 14:54 Last Admin: 06/14/22 12:52 Dose: 5 mg Pneumococcal Polyvalent Vaccine (Do Not Administer Pneumococcal Vaccine) 1 each N/A PRN PRN PRN Reason: Notification Stop: 07/13/22 14:54 Polyethylene Glycol (Polyethylene (Miralax) 17 Gm Pack) 17 gm PO Q6 [facility] Stop: 07/14/22 05:59 Last Admin: 06/14/22 12:53 Dose: 17 gm Senna/Docusate Sodium (Docusate Sodium/Senna 50/8.6mg Tab) 2 tab PO HS [facility] Stop: 07/13/22 20:59 Last Admin: 06/13/22 21:19 Dose: 2 tab Sodium Biphosphate/Sodium Phosphate (Sod Phosphate/Sod Biphosphate Enema 132 Ml Btl) 132 ml MS ONE PRN PRN Reason: Constipation Stop: 07/13/22 14:54 Tramadol HCl (Tramadol Hcl 50 Mg Tablet) 50 - 100 mg PO Q4H PRN PRN Reason: Moderate-Severe pain & Pre PT Stop: 07/13/22 14:54 Last Admin: 06/14/22 08:36 Dose: 50 mg
[2022-06-14] MEDS: DOCUSATE SODIUM/SENNA 50/8.6MG TAB PO SCH (20:00)
[2022-06-14] MEDS: ATORVASTATIN 40 MG TAB PO SCH (20:00)
[2022-06-15] MEDS: oxyCODONE HCL IR 5 MG TAB (IMMEDIATE RELEASE) PO PRN ×4 (05:15→21:57)
[2022-06-15] MEDS: POLYETHYLENE (MIRALAX) 17 GM PACK PO SCH ×4 (05:15→21:09)
--- NOTE | 2022-06-15 08:45 | Orthopedic Progress Note ---
Date of Service June 15, 2022 Assessment & Plan (1) Status post spinal surgery: Plan: Vijay is postoperative day 2 status post lumbar decompression and fusion with hardware removal. He is doing great. We will continue physical therapy today. Continue with pain control. Maintain WENDI drain. Continue with aggressive bowel regimen. Anticipate discharge home tomorrow. Admission and Anticipated Discharge Date Admission Date: June 13, 2022 Subjective Vijay is postoperative day 2 status post multilevel lumbar decompression and fusion with hardware removal. He is doing great. Has a little bit more discomfort and back pain today. No radicular leg pain. WENDI drain output last shift was 45 cc. Yesterday in physical therapy ambling roughly 500 feet. He is passing flatus but no bowel movement. Review of Systems Review of Systems: All systems reviewed & are unremarkable except as noted in HPI & below Physical Exam Physical Exam: He sitting in a chair no acute distress Alert and oriented times Lumbar dressing is clean dry and intact with functioning WENDI drain CATRACHITO hose intact Calf soft nontender bilateral Strength is intact bilateral lower extremity Results & Data ([facility]) Vital Signs (Past 12 Hours) Vital Signs Temp Pulse Resp BP Pulse Ox O2 Del Method 06/14/22 23:12 36.7 C 80 18 94/55 L 96 Room Air
[2022-06-15] MEDS: ENALAPRIL MALEATE 10 MG TAB PO SCH (08:46)
[2022-06-15] MEDS: ASPIRIN 81 MG ECTAB PO SCH (08:46)
[2022-06-15] MEDS: METOPROLOL TARTRATE 50 MG TAB PO SCH (08:46)
[2022-06-15] MEDS: MULTIVITAMIN TAB PO SCH (08:46)
[2022-06-15] MEDS: dexAMETHasone 6 MG in SYRINGE 0 ML IV SCH (08:47)
[2022-06-15] MEDS: INSULIN ASPART PER UNIT SC SCH ×4 (08:58→21:09)
[2022-06-15] MEDS ORDERED: LANTUS PER UNIT CHARGE SQ SCH (09:00)
--- NOTE | 2022-06-15 13:26 | Hospitalist Progress Note ---
Date of Service June 15, 2022 Assessment & Plan (1) Status post spinal surgery: Plan: Status post L3-L4 and L2 5S1 decompression fusion due to ongoing neurogenic claudication due to spinal stenosis. Complains minimal pain at the lower back otherwise remains asymptomatic Management will be as per orthopedic surgeon Continue gabapentin for neuropathic pain Hemoglobin remained stable and the pain is controlled Remains medically stable and likely to be discharged tomorrow by the primary (2) Diabetes type 2, controlled: Plan: Has type 2 diabetes on insulin on dulaglutide Well-controlled as per the patient Has been on sliding scale insulin Hold his oral hypoglycemic agents Blood sugar is stable (3) Hypertension: Plan: Blood pressure is controlled Continue with current medication Blood pressure remains controlled (4) Hyperlipidemia: Plan: Continue statin (5) Coronary artery disease: Plan: No acute cardiac symptoms Will continue famotidine for reflux disease DVT prophylaxis As per Ortho Has been ambulating and getting physical therapy CODE STATUS Full Admission and Anticipated Discharge Date Admission Date: June 13, 2022 Subjective 06/14/2022 The patient was seen and examined in medical floor He is out of bed on a chair and denies any symptoms 06/15/2022 The patient was seen and examined in medical floor He has had some referred pain in the left testicular area which is gone Denies any other symptoms Review of Systems Review of Systems: All systems reviewed and are unremarkable except as noted below Physical Exam Physical Exam: Lying in bed comfortably Constitutional: well developed, well nourished and average body habitus; not ill appearing Eyes: PERRL, conjunctivae normal, anicteric sclerae ENMT: external ear and nose normal, oropharynx normal Neck: trachea midline, no thyromegaly Respiratory: no respiratory distress Auscultation: lungs clear to auscultation bilaterally Cardiovascular: Rate/Rhythm: regular rate and regular rhythm; not tachycardic Heart Sounds: normal S1 and normal S2; no murmur Extremities: no edema Gastrointestinal (Abdomen): Inspection/Auscultation: normal bowel sounds; ab domen not distended Percussion/Palpation: abdomen soft; abdomen nontender Psychiatric: A+Ox3, euthymic affect Lymphatic: no cervical or axillary lymphadenopathy Results & Data Results & Data ([facility]) Vital Signs (Past 12 Hours) Vital Signs Temp Resp BP Pulse Ox O2 Del Method 06/15/22 12:00 36.8 C 18 115/68 95 Room Air Medications Administered Current Inpatient Medications Acetaminophen (Acetaminophen 500 Mg Tab) 1,000 mg PO Q8H PRN PRN Reason: MILD Pain Scale 1,2,3 & Pre PT Stop: 07/13/22 14:54 Al Hydrox/Mg Hydrox/Simethicone (Aluminum/Magnesium Susp 30 Ml Udc) 30 ml PO Q6H PRN PRN Reason: Dyspepsia Stop: 07/13/22 14:54 Aspirin (Aspirin 81 Mg Ectab) 81 mg PO QAM [facility] Stop: 07/14/22 08:59 Last Admin: 06/15/22 08:46 Dose: 81 mg Atorvastatin Calcium (Atorvastatin 40 Mg Tab) 40 mg PO QPM [facility] Stop: 07/13/22 20:59 Last Admin: 06/14/22 20:00 Dose: 40 mg Bisacodyl (Bisacodyl 10 Mg Supp) 10 mg [place] DAILY PRN PRN Reason: Constipation Stop: 07/13/22 14:54 Dextrose (Dextrose 50% 50 Ml Syringe) 25 - 50 ml IV UD PRN; Protocol PRN Reason: Hypoglycemia Protocol Stop: 07/13/22 16:44 Diphenhydramine HCl (Diphenhydramine Capsule 25 Mg Cap) 25 mg PO Q6H PRN PRN Reason: Allergic Rhinitis/Insomnia Stop: 07/13/22 14:54 Enalapril Maleate (Enalapril Maleate 10 Mg Tab) [facility] [place] [facility] [place] Stop: 07/14/22 08:59 Last Admin: 06/15/22 08:46 Dose: Not Given Famotidine (Famotidine 20 Mg Tab) 20 mg PO Q12H PRN PRN Reason: Dyspepsia Stop: 07/13/22 14:54 Glucagon (Glucagon For Inj 1 Mg Vial) 1 mg IM UD PRN; Protocol PRN Reason: Hypoglycemia Protocol Stop: 07/13/22 16:44 Glucose (Glucose 40% Gel 15 Gm Tube) 15 - 30 gm PO UD PRN; Protocol PRN Reason: Hypoglycemia Protocol Stop: 07/13/22 16:44 Glucose (Glucose 10 Tab/Tube) 4 - 8 tab PO UD PRN; Protocol PRN Reason: Hypoglycemia Protocol Stop: 07/13/22 16:44 Hydromorphone HCl (Hydromorphone Inj 0.5 Mg/0.5 Ml Syr) 0.5 mg IV Q3H PRN PRN Reason: MODERATE Pain (Scale 4,5,6) & Pre PT Stop: 06/27/22 14:54 Last Admin: 06/13/22 15:54 Dose: 0.5 mg Hydromorphone HCl (Hydromorphone Inj 1 Mg/Ml Syringe) 1 mg IV Q3H PRN PRN Reason: SEVERE Pain (Scale 7,8,9,10) Stop: 06/27/22 14:54 Hydroxyzine HCl (Hydroxyzine Hcl 25 Mg Tab) 25 mg PO Q8H PRN PRN Reason: Anxiety Stop: 07/13/22 14:54 Promethazine HCl 12.5 mg/ (Sodium Chloride) 50.5 mls @ 202 mls/hr IV Q6H PRN PRN Reason: Nausea &/or Vomiting Stop: 07/13/22 14:54 Lorazepam 0.5 mg/ Syringe 0.5 mls @ 2 mls/min IV Q8H PRN PRN Reason: Sedation/Anxiety Stop: 07/13/22 14:54 Dexamethasone 6 mg/ Syringe 1.5 mls @ 1 mls/min IV DAILY [facility] Stop: 06/16/22 09:02 Last Admin: 06/15/22 08:47 Dose: 1 mls/min Influenza Virus Vaccine Quadrival (Do Not Administer Flu Vaccine) 1 each N/A PRN PRN PRN Reason: Notification Stop: 07/13/22 14:54 Insulin Aspart (Insulin Aspart Per Unit) 0 units SC ACHS [facility] Stop: 07/13/22 16:29 Last Admin: 06/15/22 08:58 Dose: 9 units Insulin Glargine (Lantus Per Unit Charge) 40 units SQ DAILY [facility] Stop: 06/16/22 09:01 Last Admin: 06/15/22 08:57 Dose: 40 units Lorazepam (Lorazepam 0.5 Mg Tab) 0.5 mg PO Q8H PRN PRN Reason: Sedation/Anxiety Stop: 07/13/22 14:54 Magnesium Hydroxide (Magnesium Hydroxide Susp 30 Ml Udc) 30 ml PO Q24H PRN PRN Reason: Constipation Stop: 07/13/22 14:54 Metoclopramide HCl (Metoclopramide Hcl Inj 5 Mg/Ml 2 Ml Vial) 10 mg IV Q6H PRN PRN Reason: Nausea &/or Vomiting Stop: 07/13/22 14:54 Metoprolol Tartrate (Metoprolol Tartrate 50 Mg Tab) 50 mg PO QAM [facility] Stop: 07/14/22 08:59 Last Admin: 06/15/22 08:46 Dose: Not Given Miscellaneous (Carbohydrates For Hypoglycemia ) 15 - 30 gm PO UD PRN PRN Reason: Hypoglycemia Treatment Stop: 07/13/22 16:44 Miscellaneous Information (Pharmacy Glycemic Mgmt Consult) 1 each N/A UD PRN PRN Reason: Consult Stop: 07/13/22 14:54 Multivitamins (Multivitamin Tab) 1 tab PO QAM [facility] Stop: 07/14/22 08:59 Last Admin: 06/15/22 08:46 Dose: 1 tab Naloxone HCl (Naloxone Hcl 0.4 Mg/1 Ml Vial/Carp) 0.1 mg IV Q5M PRN PRN Reason: Oversedation/Resp depression Stop: 07/13/22 14:54 Ondansetron HCl (Ondansetron Inj 2 Mg/Ml 2 Ml Vial) 4 mg IV Q6H PRN PRN Reason: Nausea &/or Vomiting Stop: 07/13/22 14:54 Ondansetron HCl (Ondansetron 4 Mg Od Tab) 4 mg PO Q6H PRN PRN Reason: Nausea Stop: 07/13/22 14:54 Oxycodone HCl (Oxycodone Hcl Ir 5 Mg Tab (Immediate Release)) 5 - 10 mg PO Q4H PRN PRN Reason: Pain & Pre PT Stop: 06/27/22 14:54 Last Admin: 06/15/22 05:44 Dose: 5 mg Pneumococcal Polyvalent Vaccine (Do Not Administer Pneumococcal Vaccine) 1 each N/A PRN PRN PRN Reason: Notification Stop: 07/13/22 14:54 Polyethylene Glycol (Polyethylene (Miralax) 17 Gm Pack) 17 gm PO Q6 [facility] Stop: 07/14/22 05:59 Last Admin: 06/15/22 05:15 Dose: 17 gm Senna/Docusate Sodium (Docusate Sodium/Senna 50/8.6mg Tab) 2 tab PO HS [facility] Stop: 07/13/22 20:59 Last Admin: 06/14/22 20:00 Dose: 2 tab Sodium Biphosphate/Sodium Phosphate (Sod Phosphate/Sod Biphosphate Enema 132 Ml Btl) 132 ml [place] ONE PRN PRN Reason: Constipation Stop: 07/13/22 14:54 Tramadol HCl (Tramadol Hcl 50 Mg Tablet) 50 - 100 mg PO Q4H PRN PRN Reason: Moderate-Severe pain & Pre PT Stop: 07/13/22 14:54 Last Admin: 06/14/22 08:36 Dose: 50 mg
[2022-06-15] MEDS: ATORVASTATIN 40 MG TAB PO SCH (20:18)
[2022-06-15] MEDS: DOCUSATE SODIUM/SENNA 50/8.6MG TAB PO SCH (20:18)
[2022-06-16] MEDS: oxyCODONE HCL IR 5 MG TAB (IMMEDIATE RELEASE) PO PRN ×2 (06:16→11:15)
[2022-06-16] MEDS: POLYETHYLENE (MIRALAX) 17 GM PACK PO SCH (06:16)
[2022-06-16] MEDS: dexAMETHasone 6 MG in SYRINGE 0 ML IV SCH (08:47)
[2022-06-16] MEDS: INSULIN ASPART PER UNIT SC SCH (08:47)
[2022-06-16] MEDS: METOPROLOL TARTRATE 50 MG TAB PO SCH (08:47)
[2022-06-16] MEDS: MULTIVITAMIN TAB PO SCH (08:48)
[2022-06-16] MEDS: ASPIRIN 81 MG ECTAB PO SCH (08:48)
[2022-06-16] MEDS: ENALAPRIL MALEATE 10 MG TAB PO SCH (08:48)
[2022-06-16] MEDS ORDERED: LANTUS PER UNIT CHARGE SQ SCH (09:00)
--- NOTE | 2022-06-16 09:58 | Discharge Summary ---
Date of Service June 16, 2022 Principal Diagnosis Lumbar spinal stenosis with neurogenic claudication Discharge Data Allergies Allergy/AdvReac Type Severity Reaction Status Date / Time Gadolinium-Containing Allergy Severe Throat Verified 06/13/22 08:36 Contrast Medi swelling Consultations 06/13/22 14:55 Consult Hospitalist Routine Procedures Performed Operation Date: 06/13/22 09:55 Actual Procedures p L3-L4 and L5-S1 Decompression and Fusion, Spinal Cord Monitoring(Not Applicable) - Rinku Martinez DO s L4-L5 Hardware Removal(Not Applicable) - Rinku Martinez DO Ordered Studies 06/13/22 09:55 FL lumbar spine 2-3V Routine Hospital Course (1) Neurogenic claudication due to lumbar spinal stenosis: Patient with lumbar decompression fusion tolerated so was taken to orthopedic for postoperative. Postop day 1 is up and ambulating. Postop day 2 on postop day 3 pain was well controlled. Excellent strength testing. Separately di scharged home. Discharge orders instructions found in chart for further review. Total Time Total Time Spent Total Time Spent (In Minutes): 20 minutes Discharge Plan Discharge Items Patient Disposition: Home - Self-Care Reason For Visit: Spinal Stenosis, Lumbar Region wiht Neurogenic Discharge Diagnosis: Lumbar spinal stenosis with neurogenic claudication Activity: As commented below Non-emergency contact: Primary Care Provider Call non-emergency contact if: you have any medication questions Follow-up/Referrals: PCP,NEGRITA [Physician] - Diet: Regular Addtl Attending Provider Instructions: ACTIVITY RECOMMENDATIONS: SELF CARE INSTRUCTIONS AFTER THORACIC/LUMBAR FUSIONS 1. You may walk to your tolerance. It is good exercise for your legs and back. Expect some back and intermittent leg aches and pains. 2. You may perform "counter-top" level activities (make a sandwich, paige with a project, etc.). 3. No bending or lifting of more than 10 pounds or back twisting of any nature (roll like a log when turning in bed). 4. You may ride in a car for 20-30 minutes at a time. No driving until after your first visit with your doctor. 5. Frequent changes of position and restricting sitting to 30 minutes at a time will help limit the amount of back spasms and stiffness you may experience. 6. You may discontinue the use of ambulatory aids (cane, crutches, etc.) once your strength and confidence allow. 7. 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 Do not take a tub bath, sit in a hot tub or go into a swimming pool until after your first recheck in the office. SPECIAL CARE INSTRUCTIONS: VERY IMPORTANT TO READ AND REVIEW A. Your surgical incision has been closed with a cosmetic suture under the skin that will dissolve in about 6 weeks. In 14 days, you can use a pair of clean scissors and cut the suture that is left outside of the skin at the ends of your incision. 1. The small skin tapes can be removed 7 days after surgery if they have not fallen off by that point. 2. You may keep the wound open to air as much as possible to promote healing after post-op day number 5 unless told otherwise by your doctor. 3. If you think the wound looks like it is becoming infected (redness or worsening drainage) and/or you are experiencing fever, chill or worsening back pain and muscle spasms, contact the office so that we may evaluate you as soon as possible. B. Complications are uncommon, but please contact us if you have any signs or symptoms of: 1. wound infection (fever higher than 102.5 degrees F, redness, separation of wound, drainage, or increasing pain from the incision) 2. blood clots in legs (pain, swelling, redness and warmth in legs) 3. urinary tract infection (fever higher than 102.5 degrees F, burning upon urination or increased frequency of urination) 4. nerve problems (inability to walk on your toes or heels, numbness, loss of bowel or bladder control) 5. any other symptoms that concern you C. Please call the office at if you have any concerns or questions about your operation or recovery. D. No smoking! Smoking drastically decreases the chance of a solid fusion. E. Do not take any anti-inflammatory medications (Indocin, Advil, Motrin, Aspirin, Naprosyn, etc.) as these may inhibit the chance of a solid fusion. Tylenol is okay to take for pain. MANAGING PAIN AFTER SPINAL SURGERY 1. Narcotic medication is intended for short-term use and will be provided for surgical pain. Surgical pain usually lasts for a period of 4-6 weeks. Narcotic medication includes Percocet, Vicodin, Darvocet, Tylenol #3 or Lortab. 2. Longer-term pain is more appropriately treated with non-narcotic medication such as Tylenol ES. 3. Muscle spasm is not appropriately treated with narcotics. Muscle relaxers such as Soma, Flexeril or Skelaxin can be used along with Tylenol ES. 4. Remember that we all live with some "aches and pains". This is not unusual or uncommon after an injury or as we get older. a. Back pain is expected and may include muscle spasms for 4 to 6 weeks after surgery. The pain should gradually improve. If the pain worsens for no apparent reason, please contact the office. b. Intermittent leg pain may also be experienced and should not be concerned about unless it worsens for no apparent reason. If so, please contact the office. 5. We will provide appropriate medication within the normal guidelines of their prescribed use. We will also be very cautious and aware of potential abuse and extended duration of patients' medication needs. a. Pain medications are for your comfort and to assist with sleep and rest so that the tissue can heal. They are not provided in order to return to normal activity and should not be used through the day. To do so or worsening pain at night can result from ongoing tissue damage and development of tolerance to the prescribed medicine. 6. Please allow 2-3 days to process refills. Prescriptions will not be mailed but must be picked up at the office. FOLLOW UP VISIT: Keep your scheduled follow-up appointment. Any questions, please call the office at . Pending Studies at Discharge: No Stand-Alone Forms: My [facility], Smoking Cessation Medications and DC Order Prescriptions: New tramadol 50 mg tablet 50 mg PO Q6H PRN (Reason: pain, moderate) Qty: 30 0RF oxycodone 5 mg tablet 5 mg PO Q6H PRN (Reason: pain, severe) Qty: 30 0RF Continued aspirin [Adult Low Dose Aspirin] 81 mg tablet,delayed release (DR/EC) 81 mg PO QAM multivitamin Tablet 1 tab PO QAM omega-3 fatty acids [Fish Oil Concentrate] 1,000 mg capsule 1,000 mg PO BID metoprolol tartrate 50 mg tablet 50 mg PO QAM atorvastatin 40 mg tablet 40 mg PO QPM ramipril 10 mg tablet 10 mg PO QAM glimepiride 2 mg tablet 2 mg PO BID metformin 500 mg tablet 500 mg PO BID Rx Instructions: 2 tablets in the am and 1 tablet in the pm Jardiance 25 mg tablet 25 mg PO QAM Trulicity 0.75 mg/0.5 mL pen injector 0.75 mg subcut WK Label Comments: takes on sundays docusate sodium [Colace] 100 mg Capsule 100 mg PO DAILY Discharge Orders: Discharge Order (Routine); Ordered 06/16/22 Ordered By: Rinku Vogel/Other Patient Handouts: Managing Type 2 Diabetes Admission Data Admit Date/Time: 06/13/22 13:11 Attending Provider: Rinku Martinez Admit Provider: Rinku Martinez Primary Care Provider: Jb Koenig Other Providers: June Leach ; Jasbir Griffin
--- NOTE | 2022-06-16 11:46 | Hospitalist Progress Note ---
Date of Service June 16, 2022 Assessment & Plan (1) Status post spinal surgery: Plan: Status post L3-L4 and L2 5S1 decompression fusion due to ongoing neurogenic claudication due to spinal stenosis. Complains minimal pain at the lower back otherwise remains asymptomatic Management will be as per orthopedic surgeon Continue gabapentin for neuropathic pain Hemoglobin remained stable and the pain is controlled Remains medically stable and likely to be discharged tomorrow by the primary Medically stable and will be discharged home this afternoon (2) Diabetes type 2, controlled: Plan: Has type 2 diabetes on insulin on dulaglutide Well-controlled as per the patient Has been on sliding scale insulin Hold his oral hypoglycemic agents Blood sugar is stable (3) Hypertension: Plan: Blood pressure is controlled Continue with current medication Blood pressure remains controlled No issues (4) Hyperlipidemia: Plan: Continue statin (5) Coronary artery disease: Plan: No acute cardiac symptoms Will continue famotidine for reflux disease Denies any chest pain in the DVT prophylaxis As per Ortho Has been ambulating and getting physical therapy CODE STATUS Full Admission and Anticipated Discharge Date Admission Date: June 13, 2022 Subjective 06/14/2022 The patient was seen and examined in medical floor He is out of bed on a chair and denies any symptoms 06/15/2022 The patient was seen and examined in medical floor He has had some referred pain in the left testicular area which is gone Denies any other symptoms 06/16/2022 The patient was seen and examined in medical floor He has been stable and his back drain will be off today He has been ambulating well and will be discharged home this afternoon by the primary Review of Systems Review of Systems: All systems reviewed and are unremarkable except as noted below Physical Exam Physical Exam: Lying in bed comfortably Constitutional: well developed, well nourished and average body habitus; not ill appearing Eyes: PERRL, conjunctivae normal, anicteric sclerae ENMT: external ear and nose normal, oropharynx normal Neck: trachea midline, no thyromegaly Respiratory: no respiratory distress Auscultation: lungs clear to auscultation bilaterally Cardiovascular: Rate/Rhythm: regular rate and regular rhythm; not tachycardic Heart Sounds: normal S1 and normal S2; no murmur Extremities: no edema Gastrointestinal (Abdomen): Inspection/Auscultation: normal bowel sounds; abdomen not distended Percussion/Palpation: abdomen soft; abdomen nontender Musculoskeletal: No acute arthritis in any joint Neurologic: normal touch/pain/proprioception and moves all extremities; no focal motor deficits Psychiatric: A+Ox3, euthymic affect Lymphatic: no cervical or axillary lymphadenopathy Results & Data Results & Data ([facility]) Vital Signs (Past 12 Hours) Vital Signs Temp Pulse Pulse Pulse Resp BP BP 06/16/22 11:26 36.5 C 70 18 102/62 06/16/22 10:44 36.7 C 73 69 76 18 110/68 104/57 L 06/16/22 07:41 36.7 C 73 18 110/68 Pulse Ox O2 Del Method 06/16/22 11:26 95 Room Air 06/16/22 10:44 96 06/16/22 07:41 96 Room Air Medications Administered Current Inpatient Medications Acetaminophen (Acetaminophen 500 Mg Tab) 1,000 mg PO Q8H PRN PRN Reason: MILD Pain Scale 1,2,3 & Pre PT Stop: 07/13/22 14:54 Al Hydrox/Mg Hydrox/Simethicone (Aluminum/Magnesium Susp 30 Ml Udc) 30 ml PO Q6H PRN PRN Reason: Dyspepsia Stop: 07/13/22 14:54 Aspirin (Aspirin 81 Mg Ectab) [facility] [place] Stop: 07/14/22 08:59 Last Admin: 06/16/22 08:48 Dose: 81 mg Atorvastatin Calcium (Atorvastatin 40 Mg Tab) 40 mg PO QPM [facility] Stop: 07/13/22 20:59 Last Admin: 06/15/22 20:18 Dose: 40 mg Bisacodyl (Bisacodyl 10 Mg Supp) 10 mg [place] DAILY PRN PRN Reason: Constipation Stop: 07/13/22 14:54 Dextrose (Dextrose 50% 50 Ml Syringe) 25 - 50 ml IV UD PRN; Protocol PRN Reason: Hypoglycemia Protocol Stop: 07/13/22 16:44 Diphenhydramine HCl (Diphenhydramine Capsule 25 Mg Cap) 25 mg PO Q6H PRN PRN Reason: Allergic Rhinitis/Insomnia Stop: 07/13/22 14:54 Enalapril Maleate (Enalapril Maleate 10 Mg Tab) 40 mg PO QAM [facility] Stop: 07/14/22 08:59 Last Admin: 06/16/22 08:48 Dose: 40 mg Famotidine (Famotidine 20 Mg Tab) 20 mg PO Q12H PRN PRN Reason: Dyspepsia Stop: 07/13/22 14:54 Glucagon (Glucagon For Inj 1 Mg Vial) 1 mg IM UD PRN; Protocol PRN Reason: Hypoglycemia Protocol Stop: 07/13/22 16:44 Glucose (Glucose 40% Gel 15 Gm Tube) 15 - 30 gm PO UD PRN; Protocol PRN Reason: Hypoglycemia Protocol Stop: 07/13/22 16:44 Glucose (Glucose 10 Tab/Tube) 4 - 8 tab PO UD PRN; Protocol PRN Reason: Hypoglycemia Protocol Stop: 07/13/22 16:44 Hydromorphone HCl (Hydromorphone Inj 0.5 Mg/0.5 Ml Syr) 0.5 mg IV Q3H PRN PRN Reason: MODERATE Pain (Scale 4,5,6) & Pre PT Stop: 06/27/22 14:54 Last Admin: 06/13/22 15:54 Dose: 0.5 mg Hydromorphone HCl (Hydromorphone Inj 1 Mg/Ml Syringe) 1 mg IV Q3H PRN PRN Reason: SEVERE Pain (Scale 7,8,9,10) Stop: 06/27/22 14:54 Hydroxyzine HCl (Hydroxyzine Hcl 25 Mg Tab) 25 mg PO Q8H PRN PRN Reason: Anxiety Stop: 07/13/22 14:54 Promethazine HCl 12.5 mg/ (Sodium Chloride) 50.5 mls @ 202 mls/hr IV Q6H PRN PRN Reason: Nausea &/or Vomiting Stop: 07/13/22 14:54 Lorazepam 0.5 mg/ Syringe 0.5 mls @ 2 mls/min IV Q8H PRN PRN Reason: Sedation/Anxiety Stop: 07/13/22 14:54 Influenza Virus Vaccine Quadrival (Do Not Administer Flu Vaccine) 1 each N/A PRN PRN PRN Reason: Notification Stop: 07/13/22 14:54 Insulin Aspart (Insulin Aspart Per Unit) 0 units SC ACHS [facility] Stop: 07/13/22 16:29 Last Admin: 06/16/22 08:47 Dose: 5 units Lorazepam (Lorazepam 0.5 Mg Tab) 0.5 mg PO Q8H PRN PRN Reason: Sedation/Anxiety Stop: 07/13/22 14:54 Magnesium Hydroxide (Magnesium Hydroxide Susp 30 Ml Udc) 30 ml PO Q24H PRN PRN Reason: Constipation Stop: 07/13/22 14:54 Metoclopramide HCl (Metoclopramide Hcl Inj 5 Mg/Ml 2 Ml Vial) 10 mg IV Q6H PRN PRN Reason: Nausea &/or Vomiting Stop: 07/13/22 14:54 Metoprolol Tartrate (Metoprolol Tartrate 50 Mg Tab) 50 mg PO QAM [facility] Stop: 07/14/22 08:59 Last Admin: 06/16/22 08:47 Dose: 50 mg Miscellaneous (Carbohydrates For Hypoglycemia ) 15 - 30 gm PO UD PRN PRN Reason: Hypoglycemia Treatment Stop: 07/13/22 16:44 Miscellaneous Information (Pharmacy Glycemic Mgmt Consult) 1 each N/A UD PRN PRN Reason: Consult Stop: 07/13/22 14:54 Multivitamins ([facility]ivitamin Tab) [facility] [place] Stop: 07/14/22 08:59 Last Admin: 06/16/22 08:48 Dose: 1 tab Naloxone HCl (Naloxone Hcl 0.4 Mg/1 Ml Vial/Carp) 0.1 mg IV Q5M PRN PRN Reason: Oversedation/Resp depression Stop: 07/13/22 14:54 Ondansetron HCl (Ondansetron Inj 2 Mg/Ml 2 Ml Vial) 4 mg IV Q6H PRN PRN Reason: Nausea &/or Vomiting Stop: 07/13/22 14:54 Ondansetron HCl (Ondansetron 4 Mg Od Tab) 4 mg PO Q6H PRN PRN Reason: Nausea Stop: 07/13/22 14:54 Oxycodone HCl (Oxycodone Hcl Ir 5 Mg Tab (Immediate Release)) 5 - 10 mg PO Q4H PRN PRN Reason: Pain & Pre PT Stop: 06/27/22 14:54 Last Admin: 06/16/22 11:15 Dose: 10 mg Pneumococcal Polyvalent Vaccine (Do Not Administer Pneumococcal Vaccine) 1 each N/A PRN PRN PRN Reason: Notification Stop: 07/13/22 14:54 Polyethylene Glycol (Polyethylene (Miralax) 17 Gm Pack) 17 gm PO Q6 [facility] Stop: 07/14/22 05:59 Last Admin: 06/16/22 06:16 Dose: 17 gm Senna/Docusate Sodium (Docusate Sodium/Senna 50/8.6mg Tab) 2 tab PO HS [facility] Stop: 07/13/22 20:59 Last Admin: 06/15/22 20:18 Dose: 2 tab Sodium Biphosphate/Sodium Phosphate (Sod Phosphate/Sod Biphosphate Enema 132 Ml Btl) 132 ml [place] ONE PRN PRN Reason: Constipation Stop: 07/13/22 14:54 Tramadol HCl (Tramadol Hcl 50 Mg Tablet) 50 - 100 mg PO Q4H PRN PRN Reason: Moderate-Severe pain & Pre PT Stop: 07/13/22 14:54 Last Admin: 06/14/22 08:36 Dose: 50 mg
== END 2022-06-16 11:00 | disposition home or self-care (01) | DRG 455 ==
LOC: ASU 08:07 → PACUINP 13:11 → 3W 15:38